=== PATIENT | male | born 1950 | race Hispanic/Latino ===

== ENCOUNTER 2017-08-23 20:42 | Emergency (ER) | payer MEDICARE ==
[2017-08-23 21:58] LABS: BASOPHILS % (AUTO) 0.7 % (0.0-5.0); EOSINOPHILS % (AUTO) 2.1 % (0.0-8.0); HEMATOCRIT 38.4 % (42-54); LYMPHOCYTES % (AUTO) 12.2 % (21.0-51.0); MEAN CORPUSCULAR HEMOGLOBIN 30.5 pg (27.0-33.0); MEAN CORPUSCULAR HGB CONC 35.3 g/dL (32.0-36.0); MEAN CORPUSCULAR VOLUME 86.6 fL (79-99); PLATELET COUNT (AUTO) 273 K/uL (130-400); RED BLOOD CELL COUNT(AUTO) 4.43 MIL/uL (4.50-6.20); RED CELL DISTRIBUTION WIDTH 14.5 % (11.0-15.5); WHITE BLOOD COUNT (AUTO) 9.3 K/uL (4.8-10.8)
[2017-08-23] MEDS ORDERED: SODIUM CHLORIDE 0.9% 1000ML 1,000 ML IV ONE (22:06)
[2017-08-23] MEDS ORDERED: ONDANSETRON HCL 4 MG/2 ML VIAL ONE (22:06)
[2017-08-23 22:13] LABS: CARBON DIOXIDE 26 mmol/L (21-32); CHLORIDE 104 mmol/L (101-111); CREATININE 0.9 mg/dL (0.5-1.5); GLOMERULAR FILTR. RATE CALC 89 mL/min (>60); GLUCOSE,RANDOM 131 mg/dL (70-105); POTASSIUM 3.7 mmol/L (3.5-5.1); SODIUM SERUM 138 mmol/L (136-145); UREA NITROGEN, BLOOD 17 mg/dL (7-18)
[2017-08-23 22:14] LABS: INR 1.05 (0.85-1.15); PARTIAL THROMBOPLASTIN TIME 29.6 SEC (26.3-35.5)
[2017-08-23] MEDS ORDERED: ACETAMINOPHEN-CODEINE ELIXIR 5 ML UDCUP ONE (22:17)
[2017-08-23 22:28] LABS: ALANINE AMINOTRANSFERASE 58 U/L (12-78); ALBUMIN 3.8 g/dL (3.5-5.0); ASPARTATE AMINOTRANSFERASE 28 U/L (10-37); BILIRUBIN,TOTAL 0.6 mg/dL (0.2-1.0); CREATINE KINASE MB 2.1 ng/mL (0.5-3.6); CREATINE KINASE, TOTAL 146 U/L (21-232); MYOGLOBIN 52 ng/mL (10-92); TOTAL PROTEIN, SERUM 7.1 g/dL (6.0-8.3); TROPONIN I < 0.04 ng/mL (0.00-0.06)
== END 2017-08-23 23:11 | disposition home or self-care (01) ==
LOC: EDH 20:42
DX: K52.9 Noninfective gastroenteritis and colitis, unspecified (principal); K21.9 Gastro-esophageal reflux disease without esophagitis; K29.70 Gastritis, unspecified, without bleeding; K57.90 Diverticulosis of intestine, part unspecified, without perforation or abscess without bleeding; Z88.0 Allergy status to penicillin; Z91.041 Radiographic dye allergy status; Z90.49 Acquired absence of other specified parts of digestive tract
CPT/HCPCS: 36415; 71045; 74176; 80053; 80339; 82550; 82553; 83605; 83874; 84484 ×2; 85025; 85610; 85730; 87040 ×2; 93005; 96374; 99285; J2405; J7030

== ENCOUNTER → 2017-10-29 | Outpatient (CLI) | payer MEDICARE | END | disposition home or self-care (01) | LOC: SHCH 10:12 | PROVIDERS: ATTEND Internal Medicine Cardiovascular Disease | DX: I73.9 Peripheral vascular disease, unspecified (principal); R60.9 Edema, unspecified; I10 Essential (primary) hypertension; E78.5 Hyperlipidemia, unspecified; K21.9 Gastro-esophageal reflux disease without esophagitis; Z90.49 Acquired absence of other specified parts of digestive tract | CPT/HCPCS: 93925; 93970 ==

== ENCOUNTER 2019-04-17 11:04 | Emergency (ER) | payer MEDICARE ==
[~2019-04-17 11:04] MED LIST: AMLO5TAB9 PO; NAPR-1023 PO; RIVA20TA PO
== END 2019-04-17 12:47 | disposition left against medical advice (07) ==
LOC: EDH 11:04
DX: K59.00 Constipation, unspecified (principal); I10 Essential (primary) hypertension; I25.10 Atherosclerotic heart disease of native coronary artery without angina pectoris; F41.9 Anxiety disorder, unspecified; Z91.041 Radiographic dye allergy status; Z88.0 Allergy status to penicillin; Z90.49 Acquired absence of other specified parts of digestive tract; Z53.21 Procedure and treatment not carried out due to patient leaving prior to being seen by health care provider

== ENCOUNTER → 2019-08-29 | Outpatient (CLI) | payer MEDICARE | END | disposition home or self-care (01) | DX: R60.9 Edema, unspecified (principal) ==

== ENCOUNTER 2020-04-10 20:16 | Emergency (ER) | payer MEDICARE ==
[~2020-04-10 20:16] MED LIST changes: +AMLO-257 PO; -AMLO5TAB9 PO
[2020-04-10 20:42] LABS: APPEARANCE,URINE Clear (CLEAR); BILIRUBIN,URINE Negative (NEGATIVE); COLOR,URINE Yellow (YELLOW); GLUCOSE, URINE (UA) Negative (NEGATIVE); KETONES,URINE Negative (NEGATIVE); LEUKOCYTE ESTERASE ,URINE Trace (NEGATIVE); NITRATE,URINE Negative (NEGATIVE); OCCULT BLOOD,URINE Negative (NEGATIVE); PROTEIN,URINE Negative (NEGATIVE); UROBILINOGEN,URINE 0.2 mg/dL (0.2-1.0)
[2020-04-10 20:47] LABS: BASOPHILS % (AUTO) 0.7 % (0.0-5.0); EOSINOPHILS % (AUTO) 4.4 % (0.0-8.0); HEMATOCRIT 44.8 % (42-54); LYMPHOCYTES % (AUTO) 27.1 % (21.0-51.0); MEAN CORPUSCULAR HEMOGLOBIN 29.5 pg (27.0-33.0); MEAN CORPUSCULAR HGB CONC 33.9 g/dL (32.0-36.0); MEAN CORPUSCULAR VOLUME 86.8 fL (79-99); MONOCYTES % (AUTO) 10.4 % (3.0-13.0); NEUTROPHILS % (AUTO) 57.3 % (40.0-77.0); PLATELET COUNT (AUTO) 266 K/uL (130-400); RED BLOOD CELL COUNT(AUTO) 5.16 MIL/uL (4.50-6.20); RED CELL DISTRIBUTION WIDTH 13.2 % (11.0-15.5); WHITE BLOOD COUNT (AUTO) 7.3 K/uL (4.8-10.8)
[2020-04-10 20:54] LABS: BACTERIA,URINE Rare /HPF (None Seen); RBC,URINE 0-1 /HPF (0-1)
[2020-04-10 20:55] LABS: SQUAMOUS EPITHELIAL CELL,UR 0-2 /HPF (0-2)
[2020-04-10 21:00] LABS: CREATININE 1.2 mg/dL (0.5-1.5); POTASSIUM 3.8 mmol/L (3.5-5.1)
[2020-04-10 21:01] LABS: INR 1.32 (0.85-1.15)
[2020-04-10 21:03] LABS: PARTIAL THROMBOPLASTIN TIME 36.4 SEC (26.3-35.5)
[2020-04-10 21:04] LABS: ALBUMIN 4.2 g/dL (3.5-5.0); BILIRUBIN,TOTAL 0.6 mg/dL (0.2-1.0); TOTAL PROTEIN, SERUM 7.6 g/dL (6.0-8.3)
== END 2020-04-10 21:37 | disposition home or self-care (01) ==
LOC: EDH 20:16
DX: R04.0 Epistaxis (principal); I25.10 Atherosclerotic heart disease of native coronary artery without angina pectoris; I10 Essential (primary) hypertension; F41.9 Anxiety disorder, unspecified; Z90.49 Acquired absence of other specified parts of digestive tract; Z91.040 Latex allergy status; Z91.041 Radiographic dye allergy status
CPT/HCPCS: 36415; 80053; 81001; 85025; 85610; 85730

== ENCOUNTER 2021-09-02 02:57 | Emergency (ER) | payer MEDICARE ==
[~2021-09-02] VITALS: Ht 172.7 cm; Wt 91.6 kg
[2021-09-02 03:23] LABS: BASOPHILS % (AUTO) 0.9 % (0.0-5.0); EOSINOPHILS % (AUTO) 3.9 % (0.0-8.0); HEMATOCRIT 42.3 % (42-54); LYMPHOCYTES % (AUTO) 24.2 % (21.0-51.0); MEAN CORPUSCULAR HEMOGLOBIN 29.9 pg (27.0-33.0); MEAN CORPUSCULAR HGB CONC 34.8 g/dL (32.0-36.0); MEAN CORPUSCULAR VOLUME 86.2 fL (79-99); NEUTROPHILS % (AUTO) 58.9 % (40.0-77.0); PLATELET COUNT (AUTO) 217 K/uL (130-400); RED BLOOD CELL COUNT(AUTO) 4.91 MIL/uL (4.50-6.20); RED CELL DISTRIBUTION WIDTH 13.5 % (11.0-15.5); WHITE BLOOD COUNT (AUTO) 6.9 K/uL (4.8-10.8)
[2021-09-02] MEDS: MORPHINE 4 MG SYG IVP ONE (03:30)
[2021-09-02] MEDS: ONDANSETRON 4MG INJ IV ONE (03:30)
[2021-09-02] MEDS: LACTATED RINGERS 1000ML 1,000 ML IV ONE (03:30)
[2021-09-02] MEDS: LIDOCAINE HCL 2% VISCOUS 15 ML UDCUP PO ONE (03:30)
[2021-09-02] MEDS: MAG/ALUM/SIMETH 30 ML UDCUP PO ONE (03:30)
[2021-09-02] MEDS ORDERED: 0.9%NACL 1000ML 1,000 ML IV SCH (03:30)
[2021-09-02] MEDS: DICYCLOMINE HCL 10 MG/5 ML ML PO ONE (03:30)
[2021-09-02 03:51] LABS: CREATININE 0.9 mg/dL (0.5-1.5); POTASSIUM 3.7 mmol/L (3.5-5.1)
[2021-09-02 03:55] LABS: ALBUMIN 3.8 g/dL (3.5-5.0); TOTAL PROTEIN, SERUM 7.1 g/dL (6.0-8.3)
[2021-09-02] MEDS ORDERED: MAG-37 PO (04:15)
[2021-09-02] MEDS ORDERED: ESOM40CA PO (04:15)
[2021-09-02 04:34] VITALS: BP 143/81
== END 2021-09-02 04:36 | disposition home or self-care (01) ==
LOC: EDH 02:57
DX: K21.9 Gastro-esophageal reflux disease without esophagitis (principal); I10 Essential (primary) hypertension; E86.0 Dehydration; Z88.0 Allergy status to penicillin; Z88.8 Allergy status to other drugs, medicaments and biological substances; Z90.49 Acquired absence of other specified parts of digestive tract; Z79.1 Long term (current) use of non-steroidal anti-inflammatories (NSAID)
CPT/HCPCS: 99285; 84484; 80053; 83690; 85025; 36415; 71045; 96374; 96361; 96375; 93005; J7120; J7030; J2405; J2270

== ENCOUNTER 2022-07-08 20:02 | Emergency (ER) | payer OTHER, MEDICARE ==
[~2022-07-08] VITALS: Ht 172.7 cm; Wt 86.3 kg
[~2022-07-08 20:02] MED LIST changes: +ESOM40CA PO; +MAG-37 PO
[2022-07-08 21:50] LABS: BASOPHILS % (AUTO) 0.8 % (0.0-5.0); EOSINOPHILS % (AUTO) 2.9 % (0.0-8.0); HEMATOCRIT 41.8 % (42-54); LYMPHOCYTES % (AUTO) 26.7 % (21.0-51.0); MEAN CORPUSCULAR HEMOGLOBIN 29.3 pg (27.0-33.0); MEAN CORPUSCULAR HGB CONC 33.7 g/dL (32.0-36.0); MEAN CORPUSCULAR VOLUME 86.7 fL (79-99); MONOCYTES % (AUTO) 10.3 % (3.0-13.0); PLATELET COUNT (AUTO) 240 K/uL (130-400); RED BLOOD CELL COUNT(AUTO) 4.82 MIL/uL (4.50-6.20); RED CELL DISTRIBUTION WIDTH 13.6 % (11.0-15.5); WHITE BLOOD COUNT (AUTO) 7.5 K/uL (4.8-10.8)
[2022-07-08 21:59] LABS: CREATININE 0.8 mg/dL (0.5-1.5); POTASSIUM 3.9 mmol/L (3.5-5.1)
[2022-07-08 22:05] LABS: ALBUMIN 3.9 g/dL (3.5-5.0); TOTAL PROTEIN, SERUM 7.4 g/dL (6.0-8.3)
[2022-07-08 23:32] LABS: APPEARANCE,URINE CLEAR (CLEAR); BILIRUBIN,URINE NEGATIVE (NEGATIVE); COLOR,URINE LIGHT-YELLOW (YELLOW); GLUCOSE, URINE (UA) NEGATIVE (NEGATIVE); KETONES,URINE NEGATIVE (NEGATIVE); LEUKOCYTE ESTERASE ,URINE 75 Leu/uL (NEGATIVE); NITRATE,URINE NEGATIVE (NEGATIVE); OCCULT BLOOD,URINE NEGATIVE (NEGATIVE); PH,URINE 6.5 (5.0-8.0); PROTEIN,URINE NEGATIVE (NEGATIVE); UROBILINOGEN,URINE 0.2 mg/dL (0.2-1.0)
[2022-07-08 23:52] LABS: MUCUS,URINE RARE LPF (None Seen)
[2022-07-09 00:58] VITALS: BP 156/81
[2022-07-09] MEDS ORDERED: OMEP40CA21 PO (01:05)
[2022-07-09] MEDS ORDERED: DICY20TA2 PO (01:05)
== END 2022-07-09 01:28 | disposition home or self-care (01) ==
LOC: EDH 20:02
DX: R10.11 Right upper quadrant pain (principal); K21.9 Gastro-esophageal reflux disease without esophagitis; I10 Essential (primary) hypertension; Z88.0 Allergy status to penicillin; Z88.8 Allergy status to other drugs, medicaments and biological substances; Z90.49 Acquired absence of other specified parts of digestive tract
CPT/HCPCS: 36415; 74176; 80053; 81001; 83690; 84484; 85025; 87088; 93005

== ENCOUNTER → 2023-03-01 | Outpatient (CLI) | payer OTHER, MEDICARE ==
[~2023-03-01] MED LIST changes: +DICY20TA2 PO; +OMEP40CA21 PO
== END | disposition home or self-care (01) ==
LOC: RAH 06:53
PROVIDERS: ATTEND Internal Medicine
DX: R10.11 Right upper quadrant pain (principal); R14.0 Abdominal distension (gaseous)
CPT/HCPCS: 78264; A9541

== ENCOUNTER → 2023-07-28 | Outpatient (CLI) | payer OTHER, MEDICARE | END | disposition home or self-care (01) | LOC: SHCH 10:50 | PROVIDERS: ATTEND Internal Medicine Cardiovascular Disease | DX: I87.2 Venous insufficiency (chronic) (peripheral) (principal); R60.9 Edema, unspecified; I87.1 Compression of vein | CPT/HCPCS: 93971 ==

== ENCOUNTER → 2024-12-29 | Outpatient (CLI) | payer OTHER, MEDICARE ==
[~2024-12-29] MED LIST changes: -NAPR-1023 PO; +NAPR-1194 PO
--- NOTE | 2024-12-30 00:49 | HMCIMG ---
EXAM: CT Chest Without IV contrast CLINICAL HISTORY: Other pulmonary collapse, solitary pulmonary nodule TECHNIQUE: Axial computed tomography images of the chest acquired without intravenous contrast. Dose information: Total DLP 291 mGy???cm, Volume CTDI 8.7 mGy. COMPARISON: None provided. FINDINGS: LUNGS: Subpleural atelectasis noted in the right lower lobe. Mild bronchitic and bronchiolitic changes seen in both lungs. No pulmonary nodule or consolidation. PLEURAL SPACES: Pleural thickening with dense subpleural calcification in the right basal zone measuring up to 2 cm. No pleural effusion or pneumothorax. HEART: Cardiomegaly present. No pericardial effusion. MEDIASTINUM: No enlarged mediastinal or hilar lymph nodes. DIAPHRAGM: Elevated right hemidiaphragm. UPPER ABDOMEN: Postsurgical changes in the gallbladder fossa consistent with prior cholecystectomy. Visualised liver and spleen unremarkable. BONES: Degenerative lumbar spondylosis with foraminal narrowing noted. No acute osseous lesion. IMPRESSION: * Pleural thickening with dense subpleural calcification (2 cm) in the right basal zone with adjacent subpleural atelectasis???likely sequela of prior pleuritis or fibrothorax. * Cardiomegaly with elevated right hemidiaphragm. * Mild bronchitis and bronchiolitis in bilateral lungs. * Radiologic???Clinical Correlation: Findings consistent with chronic pleuropulmonary changes; no acute intrathoracic abnormality identified. /[place]
== END | disposition home or self-care (01) ==
LOC: RAH 14:27
PROVIDERS: ATTEND Family Medicine
DX: J40 Bronchitis, not specified as acute or chronic (principal); J21.9 Acute bronchiolitis, unspecified; I51.7 Cardiomegaly; J98.19 Other pulmonary collapse; R91.1 Solitary pulmonary nodule; J98.11 Atelectasis; J98.4 Other disorders of lung; J92.9 Pleural plaque without asbestos; M47.816 Spondylosis without myelopathy or radiculopathy, lumbar region; M48.061 Spinal stenosis, lumbar region without neurogenic claudication; Z90.49 Acquired absence of other specified parts of digestive tract
CPT/HCPCS: 71250